=== PATIENT | male | born 1940 ===

== ENCOUNTER 2017-11-24 14:45 | Inpatient (IN) | payer MEDICARE ==
[2017-11-24] MEDS ORDERED: Iodixanol 320 MG/ML 100 ML BOTTLE IV ONE (14:54)
[2017-11-24] MEDS ORDERED: Sodium Chloride 0.9% 100 ML ONE (14:54)
[2017-11-24] MEDS ORDERED: Sodium Chloride 0.9% 1,000 ML IV SCH (15:00)
--- NOTE | 2017-11-24 15:07 | CT ---
PROCEDURE: CT HEAD WITHOUT CONTRAST. HISTORY: code stroke COMPARISON: None available. TECHNIQUE: Axial computed tomography images were obtained through the head/brain without intravenous contrast. Radiation dose: Total exam DLP = 1198 mGy-cm. This CT exam was performed using one or more of the following dose reduction techniques: Automated exposure control, adjustment of the mA and/or kV according to patient size, and/or use of iterative reconstruction technique. FINDINGS: HEMORRHAGE: No intracranial hemorrhage. BRAIN: No mass effect or edema. There is extensive bilateral diffuse cerebral atrophy and multiple bilateral deep white matter microvascular ischemic changes. These findings are also seen in the basal ganglionic regions bilaterally an in each deep temporal lobe. Right thalamic lacune also suggested. These findings may be chronic. However acute on chronic pathology is not excluded. No significant associated edema VENTRICLES: Unremarkable. No hydrocephalus. CALVARIUM: Unremarkable. PARANASAL SINUSES: Unremarkable as visualized. No significant inflammatory changes. MASTOID AIR CELLS: Unremarkable as visualized. No inflammatory changes. OTHER FINDINGS: None. IMPRESSION: No intracranial hemorrhage. No mass effect or edema. There is extensive bilateral diffuse cerebral atrophy and multiple bilateral deep white matter microvascular ischemic changes. These findings are also seen in the basal ganglionic regions bilaterally an in each deep temporal lobe. Right thalamic lacune also suggested. These findings may be chronic. However acute on chronic pathology is not excluded. No significant associated edema
--- NOTE | 2017-11-24 15:46 | ED PDOC ---
HPI:STROKE - Time Time: 14:50 - Historian Historian: Partner, EMS - Chief Complaint Chief Complaint: Mental status change - Notes: Notes:: Grant Colón is a 77 year old male, with no known past medical history, who was brought to the emergency department by [facility] and PD after patient was found walking along sidewalk leaning against buildings wearing shorts and slippers in below freezing weather. EMS was called for evaluation and report that patient just kept saying he wanted to go to the cafeteria and was initially refusing to get in the ambulance. On arrival patient was extremely lethargic, unable to get any history due to patient's clinical condition PMD: None provided. NIHSS Stroke Scale - Date/Time Evaluation Performed Date Performed: 11/24/17 Time Performed: 14:50 When Was NIHSS Performed: Baseline - How Severe is the Stroke Level of Consciousness: 1=Drowsy LOC to Questions: 2=Neither correct LOC to commands: 2=Neither correct Best Gaze: 0=Normal Visual: 0=No visual loss Facial: 1=Minor asymmetry Motor Arm - Left: 0=No drift Motor Arm - Right: 0=No drift Motor Leg - Left: 0=No drift Motor Leg - Right: 0=No drift Limb Ataxia: 0=Absent Sensory: 0=Normal Best Language: 2=Severe aphasia Dysarthia: 2=Severe, near unintelligible or worse Extinction & Inattention (Neglect): 0=Normal, no object Score: 10 Severity Of Stroke: 5-15 = Moderate Stroke rTPA Inclusion/Exclusion - Refusal of Treatment Patient Refused Treatment: No - Inclusion Criteria for Altepase Patient is 18 years or Older: Yes The Clinical Diagnosis of Ischemic Stroke That is Causing a Potentially Disabling Neurological Deficit: Yes Time of Onset is Well Established to be Less Than 270 Minute Before Treatment Would Begin: No Risk/Benefit Discussed With Patient/Family Member Present: No - Exclusion Criteria for Altepase Uncontrolled Hypertension at Time of Treatment (Systolic BP above 185 or Diastolic BP above 110 mmHg): No Past Medical History Reviewed: Historical Data, Nursing Documentation, Vital Signs - Family History Family History: States: Unknown Family Hx - Home Medications Home Medications: Ambulatory Orders Medication Instructions Recorded Acetaminophen [Tylenol 325mg tab] 650 mg PO Q4 PRN tab 11/30/17 Aspirin 325 mg PO DAILY tab 11/30/17 Atorvastatin [Lipitor] 20 mg PO DAILY tab 11/30/17 Clopidogrel [Plavix] 75 mg PO DAILY tab 11/30/17 Nystatin [Nystop Topical Powder] 1 applic TOP TID bottle 11/30/17 Valsartan [Diovan] 80 mg PO DAILY #0 tab 11/30/17 - Allergies Allergies/Adverse Reactions: Allergies Allergy/AdvReac Type Severity Reaction Status Date / Time No Known Allergies Allergy Verified 11/24/17 14:50 Review of Systems Review Of Systems: ROS cannot be obtained secondary to pt's inabilty to answer questions. Physical Exam - Reviewed Nursing Documentation Reviewed: Yes Vital Signs Reviewed: Yes - Physical Exam Appears: Positive for: In Acute Distress (severe lethargy and weakness. ) Head Exam: Positive for: ATRAUMATIC, NORMAL INSPECTION, NORMOCEPHALIC Skin: Positive for: Normal Color. Negative for: Warm (Cold in extremities. ) Eye Exam: Positive for: Normal appearance ENT: Positive for: Other (Dry mucous membranes.) Neck: Positive for: Painless ROM Cardiovascular/Chest: Positive for: Regular Rate, Rhythm. Negative for: Murmur Respiratory: Positive for: Normal Breath Sounds. Negative for: Respiratory Distress Gastrointestinal/Abdominal: Positive for: Normal Exam, Soft. Negative for: Tenderness, Guarding, Rebound Extremity: Positive for: Normal ROM. Negative for: Tenderness, Deformity, Swelling Neurologic/Psych: Positive for: Alert (Reacts to pain in all extremities. ), Facial Droop (Sutile right facial droop and sutile right pronator drift. ) - Laboratory Results Result Diagrams: 11/26/17 05:00 11/28/17 06:31 - Progress Condition: Improving,but remains with symptoms - Core Measure Core Measure Indicators: Code Stroke - Critical Care Total Time (In Min): 30 Documented Critical Care: Time excludes all time spent performint seperately billable procedures Medical Decision Making Medical Decision Makin:50 Initial Impression: AMS, weakness. Differential includes but not limited to Stroke, TIA, metabolic encephalopathy, electrolyte abnormality, dehydration, hypothermia, intoxication. Pt will need hospitalization for full workup of above, pending initial workup. Initial Plan: --Type and screen --ABG Shock Panel --CTA Head/Neck Cod Stroke --EKG --Alcohol serum --Ammonia --B-Type Natriuretic Peptide --CMP --Creatine Phosphokinase --Drug screen, urine --Hemoglobin A1C --Lipid Panel --Magnesium --Phosphorus --Troponin I --Stroke team consult --Urine dipstick --CBC w/ differential --PTT --PT --Chest portable [RAD] --Sodium Chloride 1,000 ml IV 100 mls/hr --Influenza A B --Reevaluation 15:[address] FINDINGS: HEMORRHAGE: No intracranial hemorrhage. BRAIN: No mass effect or edema. There is extensive bilateral diffuse cerebral atrophy and multiple bilateral deep white matter microvascular ischemic changes. These findings are also seen in the basal ganglionic regions bilaterally an in each deep temporal lobe. Right thalamic lacune also suggested. These findings may be chronic. However acute on chronic pathology is not excluded. No significant associated edema VENTRICLES: Unremarkable. No hydrocephalus. CALVARIUM: Unremarkable. PARANASAL SINUSES: Unremarkable as visualized. No significant inflammatory changes. MASTOID AIR CELLS: Unremarkable as visualized. No inflammatory changes. OTHER FINDINGS: None. IMPRESSION: No intracranial hemorrhage. No mass effect or edema. There is extensive bilateral diffuse cerebral atrophy and multiple bilateral deep white matter microvascular ischemic changes. These findings are also seen in the basal ganglionic regions bilaterally an in each deep temporal lobe. Right thalamic lacune also suggested. These findings may be chronic. However acute on chronic pathology is not excluded. No significant associated edema 15:53 CXR FINDINGS: LUNGS: No active pulmonary disease. Shallow inspiration. PLEURA: No significant pleural effusion identified,. A minimal left pleural effusion cannot be excluded. Summation soft tissues versus left inferolateral pleural thickening can also simulate this findings are slightly more conspicuous on the current study. No pneumothorax apparent. CARDIOVASCULAR: Normal. OSSEOUS STRUCTURES: No significant abnormalities. VISUALIZED UPPER ABDOMEN: Normal. OTHER FINDINGS: None. IMPRESSION: No consolidation. Shallow lung volumes. Minimal increase opacity left inferolateral costophrenic angle -small left pleural effusion, interval left inferolateral pleural thickening versus summation of soft tissues all considerations. 16:12 Head/Neck CTA FINDINGS: Visualized aortic arch is widely patent as are the origins of the great vessels. Common carotid arteries are with no occlusion. There is a fairly significant calcified atherosclerotic plaque the left the level of the left carotid bifurcation with estimated diameter narrowing of at least 60-65 %. . The remainder of the left internal carotid artery as well as the right internal carotid including the petrous and cavernous segments despite some minimal calcific plaque along the cavernous carotid arteries. The supraclinoid carotid segments are patent. There is asymmetry of the vertebral arteries right-sided which is larger in caliber more dominant felt to represent a anatomic variation. Basilar artery is also patent. The visualized major branches of the [place] are also patent though there is asymmetry of the A1 segments right-sided which smaller in caliber than the left felt to represent an anatomic variant. The at the anterior middle and posterior cerebral arteries are patent all with relatively symmetric appearing distal branches as well. No evidence of large aneurysm nor vascular malformation. Please refer to CT scan of the brain for additional details regarding white matter and multiple bilateral basal nuclei lacunar type infarcts. Moderate central volume loss. Multilevel degenerative spondylosis of the cervical spine. RIGHT CAROTID ARTERIES: Carotid Bifurcatio are the the the the the anchor at poor for subglottic at n: Normal. IMPRESSION: Significant atherosclerotic plaque left carotid bifurcation with estimated percent diameter stenosis of at least 60-65 % 1600 Pt's mental status spontaneously improved since arrival. He reports that he has been diagnosed with htn in the past but does not take medications or sees any PMD. He lives in a hotel and otherwise has no permanent home. Required to leave during the day. Ddx includes TIA, near syncope, metabolic encephalopathy, carotid artery stenosis. Needs hospitalization for further management. [facility]. Scribe Attestation: Documented by Zafar Gallardo, acting as a scribe for Elma Cuellar MD Provider Scribe Attestation: All medical record entries made by the Scribe were at my direction and personally dictated by me. I have reviewed the chart and agree that the record accurately reflects my personal performance of the history, physical exam, medical decision making, and the department course for this patient. I have also personally directed, reviewed, and agree with the discharge instructions and disposition. Disposition - Clinical Impression Clinical Impression: Confusion and disorientation, Carotid artery disease Counseled Patient/Family Regarding: Studies Performed, Diagnosis - Disposition Disposition Time: 15:00 Condition: GUARDED - Pt Status Changed To: Hospital Disposition Of: Inpatient - Admit Certification Admit to Inpatient:: After my assessment, the patient will require hospitalization for at least two midnights. This is because of the severity of symptoms shown, intensity of services needed, and/or the medical risk in this patient being treated as an outpatient. - POA Present On Arrival: Falls Or Trauma (risk)
[2017-11-24 16:05] LABS: INR 1.3 (0.9-1.2); PARTIAL THROMBOPLASTIN TIME 29.7 Seconds (25.6-37.1); PROTHROMBIN TIME 14.6 Seconds (9.8-13.1)
[2017-11-24 16:11] LABS: ALBUMIN 3.4 g/dL (3.5-5.0); ALT/SGPT 18 U/L (21-72); AST/SGOT 30 U/L (17-59); BLOOD UREA NITROGEN 22 mg/dl (9-20); CALCIUM 9.6 mg/dL (8.4-10.2); GFR AFRICAN-AMERICAN 33; GFR NON-AFRICAN AMERICAN 28; HDL CHOLESTEROL 21 MG/DL (30-70)
--- NOTE | 2017-11-24 16:14 | CT ---
PROCEDURE: CT Angiography of the neck and brain dated 11/24/2017 HISTORY: Code stroke COMPARISON: Correlation made with prior CT scan brain obtained earlier same day TECHNIQUE: Contiguous helical/transaxial images of the neck were obtained from the level of the skull-base to the superior mediastinum in the arteriographic phase of enhancement. Coronal and sagittal reformats or also generated. IV contrast dose: 95 cc Visipaque 320 Radiation Dose - DLP: 2164.5 mGy-cm This CT exam was performed using one or more of the following dose reduction techniques: Automated exposure control, adjustment of the mA and/or kV according to patient size, and/or use of iterative reconstruction technique. FINDINGS: Visualized aortic arch is widely patent as are the origins of the great vessels. Common carotid arteries are with no occlusion. There is a fairly significant calcified atherosclerotic plaque the left the level of the left carotid bifurcation with estimated diameter narrowing of at least 60-65 %. . The remainder of the left internal carotid artery as well as the right internal carotid including the petrous and cavernous segments despite some minimal calcific plaque along the cavernous carotid arteries. The supraclinoid carotid segments are patent. There is asymmetry of the vertebral arteries right-sided which is larger in caliber more dominant felt to represent a anatomic variation. Basilar artery is also patent. The visualized major branches of the [place] are also patent though there is asymmetry of the A1 segments right-sided which smaller in caliber than the left felt to represent an anatomic variant. The at the anterior middle and posterior cerebral arteries are patent all with relatively symmetric appearing distal branches as well. No evidence of large aneurysm nor vascular malformation. Please refer to CT scan of the brain for additional details regarding white matter and multiple bilateral basal nuclei lacunar type infarcts. Moderate central volume loss. Multilevel degenerative spondylosis of the cervical spine. RIGHT CAROTID ARTERIES: Carotid Bifurcatio are the the the the the anchor at poor for subglottic at n: Normal. IMPRESSION: Significant atherosclerotic plaque left carotid bifurcation with estimated percent diameter stenosis of at least 60-65 %
[2017-11-24 16:20] LABS: B-TYPE NATRIURETIC PEPTIDE 164 pg/ml (0-900)
[2017-11-24 16:22] LABS: LDL CHOLESTEROL 176 mg/dL (0-129)
--- NOTE | 2017-11-24 16:55 | RAD ---
HISTORY: Code Stroke COMPARISON: 04/12/2008 FINDINGS: LUNGS: No active pulmonary disease. Shallow inspiration. PLEURA: No significant pleural effusion identified,. A minimal left pleural effusion cannot be excluded. Summation soft tissues versus left inferolateral pleural thickening can also simulate this findings are slightly more conspicuous on the current study. No pneumothorax apparent. CARDIOVASCULAR: Normal. OSSEOUS STRUCTURES: No significant abnormalities. VISUALIZED UPPER ABDOMEN: Normal. OTHER FINDINGS: None. IMPRESSION: No consolidation. Shallow lung volumes. Minimal increase opacity left inferolateral costophrenic angle -small left pleural effusion, interval left inferolateral pleural thickening versus summation of soft tissues all considerations.
[2017-11-24 16:56] LABS: BASO % 0.2 % (0.0-2.0); EOS % 0.2 % (0.0-4.0); HEMOGLOBIN 13.8 g/dL (12.0-18.0); LYMPH # 3.6 K/uL (1.0-4.3); LYMPH % 21.5 % (20.0-40.0); MEAN CELL VOLUME 88.4 fl (80.0-94.0); MEAN CORPUSCULAR HEMOGLOBIN 28.7 pg (27.0-31.0); MEAN CORPUSCULAR HGB CONC 32.5 g/dL (33.0-37.0); MEAN PLATELET VOLUME 7.9 fl (7.2-11.7); MONO # 0.9 K/uL (0.0-0.8); MONO % 5.2 % (0.0-10.0); NEUT # 12.2 K/uL (1.8-7.0); NEUT % 72.9 % (50.0-75.0); NRBC % 0.1 % (0.0-0.0); RBC 4.81 Mil/uL (4.40-5.90); WHITE BLOOD COUNT 16.7 K/uL (4.8-10.8)
[2017-11-24 18:53] LABS: BARBITURATES, UR NEGATIVE (NEGATIVE); BENZODIAZEPINES, UR NEGATIVE (NEGATIVE); OPIATES, UR NEGATIVE (NEGATIVE); PHENCYCLIDINE, UR NEGATIVE (NEGATIVE)
[2017-11-24] MEDS ORDERED: Dextrose 5%/0.45% NS 1,000 ML IV SCH (22:00)
[2017-11-25 07:20] LABS: HEMOGLOBIN 14.1 g/dL (12.0-18.0); MEAN CELL VOLUME 84.6 fl (80.0-94.0); MEAN CORPUSCULAR HEMOGLOBIN 29.1 pg (27.0-31.0); MEAN CORPUSCULAR HGB CONC 34.4 g/dL (33.0-37.0); RBC 4.84 Mil/uL (4.40-5.90)
[2017-11-25 07:45] LABS: CALCIUM 9.1 mg/dL (8.4-10.2)
[2017-11-25] MEDS ORDERED: Potassium Chloride 20 mEq ER Tab PO ONE (08:35)
[2017-11-25] MEDS ORDERED: Enoxaparin 30 mg Syringe SC SCH (09:00)
--- NOTE | 2017-11-25 09:55 | HP ---
HISTORY OF PRESENT ILLNESS: Mr. Colón is a 77-year-old male who was admitted via the Emergency Room after he was brought in by EMS from [place] who was found walking down along the sidewalk and was leaning against the building. He was reported as having what appeared to be a syncopal episode. He was brought to the Emergency Room where workup was remarkable for some cerebrovascular atherosclerosis and he was advised admission for workup and therapy. He has a history of hypertension on Diovan, but has not been compliance to medication. He has not seen a doctor for years. FAMILY HISTORY: Noncontributory. SOCIAL HISTORY: He denies smoking, alcohol use, but lives alone in [place] and is not in touch with his family. REVIEW OF SYSTEMS: Essentially remarkable for dizziness. PHYSICAL EXAMINATION: GENERAL: The patient is alert and oriented to person, place and time, but still complains that he feels somewhat dizzy. VITAL SIGNS: Remarkable for blood pressure of 104/69 with the pulse of 80, respiratory rate is 20. He is afebrile. O2 sat is 100% on room air. SKIN: Shows fair turgor. HEENT: Pupils are equal and reactive to light and accommodation. JVP is flat. Mouth shows fair hygiene. LUNGS: Clear. HEART: Regular. No murmurs or gallop. ABDOMEN: Soft and nontender. No organomegaly. EXTREMITIES: Shows no edema or cyanosis, but appear unkempt. LABORATORY DATA: Sodium 139, potassium 3.5, BUN 22, and creatinine 2.3. Troponin 0.028. Triglycerides 175 and cholesterol 217. WBC 16.7, hemoglobin 13.8, and platelet count . CT scan of the head is remarkable for no mass effect or edema, extensive bilateral diffuse cerebral atrophy, multiple bilateral deep white matter microvascular ischemic changes, these findings are also seen in the basal ganglia region bilaterally and in each deep temporal lobe, right thalamic lacune also suggested, these findings may be chronic; however, [id number] pathology is not excluded. Head CT and neck CTA remarkable for significant atherosclerotic plaque left carotid bifurcation with stenosis of at least 60% to 65%. Chest x-ray, minimal increased opacity in left inferior and lateral costophrenic angles, small left pleural effusion, some pleural thickening. EKG official report pending, but unofficially is normal sinus rhythm with right bundle-branch block. IMPRESSION: Syncopal episode with severe atherosclerotic disease of the vertebrobasilar system and carotids. Abnormal electrocardiogram one has to rule out central nervous system pathology, one also has to rule out cardiac arrhythmias. The patient has a history of hypertension, but has not been compliance to medication. PLAN: The plan would be Neurology evaluation, Cardiology evaluation. Medications already ordered. Neuro and cardiac workup in progress. Americo Noble MD
--- NOTE | 2017-11-25 11:33 | CARD ---
APPROVED REPORT EKG Measurement Heart [id number] CA [id number] [id number] <Conclusion> Normal sinus rhythm Right bundle branch block Abnormal ECG
--- NOTE | 2017-11-25 14:00 | CARD ---
APPROVED REPORT EXAM: Two-dimensional and M-mode echocardiogram with Doppler and color Doppler. Other Information Quality : AverageRhythm : NSR INDICATION CVA/TIA 2D DIMENSIONS IVSd1.07 (0.7-1.1cm)LVDd3.74 (3.9-5.9cm) LVOT Diameter2.22 (1.8-2.4cm)PWd0.75 (0.7-1.1cm) IVSs1.34 (0.8-1.2cm)LVDs1.61 (2.5-4.0cm) FS (%) 56.8 %PWs1.20 (0.8-1.2cm) M-Mode DIMENSIONS Left Atrium (MM)4.35 (2.5-4.0cm)IVSd1.09 (0.7-1.1cm) Aortic Root3.38 (2.2-3.7cm)LVDd5.21 (4.0-5.6cm) Aortic Cusp Exc.1.29 (1.5-2.0cm)PWd0.74 (0.7-1.1cm) IVSs1.76 cmFS (%) 62 % LVDs2.00 (2.0-3.8cm)PWs1.38 cm Mitral Valve MV E Bojxypts23.6cm/sMV DECEL [id number] A Fkinverd84.7cm/s MV [id number]/A ratio0.5MVA (PHT)1.92cm2 TDI Lateral E' Peak V6.93cm/sMedial E' Peak V7.09cm/sE/Lateral E'7.6 E/Medial E'7.4 Pulmonary Valve PV Peak Msyugtcb447.7cm/s Tricuspid Valve TR Peak Jixlumik134jj/sRAP [id number] Peak Gr.15mmHg [id number] LEFT VENTRICLE The left ventricle is normal size. There is normal left ventricular wall thickness. The left ventricular function is normal. The left ventricular ejection fraction is within the normal range. The Ejection Fraction is >70%. There is normal LV segmental wall motion. Transmitral Doppler flow pattern is Grade I-abnormal relaxation pattern. RIGHT VENTRICLE The right ventricle is normal size. The right ventricular systolic function is normal. ATRIA The left atrium size is normal. The right atrium size is normal. AORTIC VALVE The aortic valve is normal in structure. No aortic regurgitation is present. There is no aortic valvular stenosis. MITRAL VALVE The mitral valve is normal in structure. There is no mitral valve stenosis. There is no mitral valve regurgitation noted. TRICUSPID VALVE The tricuspid valve is normal in structure. There is no tricuspid valve regurgitation noted. There is no tricuspid valve stenosis. PULMONIC VALVE The pulmonary valve is normal in structure. There is no pulmonic valvular regurgitation. GREAT VESSELS The aortic root is normal in size. The IVC is normal in size and collapses >50% with inspiration. PERICARDIAL EFFUSION The pericardium appears normal. <Conclusion> The left ventricle is normal size. The left ventricular function is normal. The left ventricular ejection fraction is within the normal range. The Ejection Fraction is >70%.
[2017-11-25] MEDS ORDERED: Sodium Chloride 0.9% 1,000 ML IV SCH (14:15)
--- NOTE | 2017-11-25 14:50 | CARD ---
APPROVED REPORT EKG Measurement Heart [id number] ND 130P33 [id number] <Conclusion> Normal sinus rhythm Right bundle branch block Left anterior fascicular block
--- NOTE | 2017-11-25 14:59 | CP.PCM.CON ---
History of Present Illness - History of Present Illness History of Present Illness: Cardiology 77 y/o male admitted with change of mental status. Pt was found wandering in the street. Confused on admission now oriented denies chest pain/sob/syncope Pt has no PMH EKG: RBBB Echo; good LV function EF: 70% Troponin: neg Past Patient History - Past Medical History & Family History Past Medical History?: Yes - Past Social History Smoking Status: Never Smoked - CARDIAC Hx Cardiac Disorders: Yes Hx Hypercholesterolemia: Yes Hx Hypertension: Yes - PULMONARY Hx Asthma: Yes - NEUROLOGICAL Hx Neurological Disorder: No - HEENT Hx HEENT Problems: No - RENAL Hx Chronic Kidney Disease: No - ENDOCRINE/METABOLIC Hx Endocrine Disorders: No - HEMATOLOGICAL/ONCOLOGICAL Hx AIDS: No Hx Blood Transfusions: No Hx Human Immunodeficiency Virus (HIV): No - INTEGUMENTARY Hx Dermatological Problems: No - MUSCULOSKELETAL/RHEUMATOLOGICAL Hx Musculoskeletal Disorders: No Hx Falls: No - GASTROINTESTINAL Hx Gastrointestinal Disorders: No - GENITOURINARY/GYNECOLOGICAL Hx Genitourinary Disorders: No - PSYCHIATRIC Hx Substance Use: No - SURGICAL HISTORY Hx Surgeries: No - ANESTHESIA Hx Anesthesia: No Hx Anesthesia Reactions: No Meds Allergies/Adverse Reactions: Allergies Allergy/AdvReac Type Severity Reaction Status Date / Time No Known Allergies Allergy Verified 11/24/17 14:50 - Medications Medications: Current Medications Acetaminophen (Tylenol 325mg Tab) 650 mg PO Q4 PRN PRN Reason: Pain, Mild (1-3) Aspirin (Aspirin) 325 mg PO DAILY [facility] Last Admin: 11/25/17 08:52 Dose: 325 mg Atorvastatin Calcium (Lipitor) 20 mg PO DAILY [facility] Clopidogrel Bisulfate (Plavix) 75 mg PO DAILY [facility] Last Admin: 11/25/17 08:53 Dose: 75 mg Enoxaparin Sodium (Lovenox) 30 mg SC DAILY [facility] PRN Reason: Protocol Sodium Chloride (Sodium Chloride 0.9%) 1,000 mls @ 999 mls/hr IV .Q1H1M [facility] Stop: 11/26/17 14:14 Nystatin (Nystop Topical Powder) 1 applic TOP TID [facility] Valsartan (Diovan) 80 mg PO DAILY [facility] Last Admin: 11/25/17 08:52 Dose: 80 mg Physical Exam - Respiratory Exam Respiratory Exam: NORMAL BREATHING PATTERN - Cardiovascular Exam Cardiovascular Exam: REGULAR RHYTHM Results - Vital Signs Recent Vital Signs: Last Vital Signs Temp 98.1 F 11/25/17 12:27 Pulse 88 11/25/17 12:27 Resp 20 11/25/17 12:27 BP 96/58 L 11/25/17 12:27 Pulse Ox 96 11/25/17 12:27 - Labs Result Diagrams: 11/26/17 05:00 11/26/17 05:00 Labs: Laboratory Results - last 24 hr 11/24/17 11/24/17 11/24/17 15:40 15:40 15:42 WBC RBC Hgb Hct MCV MCH MCHC RDW Plt Count MPV Neut % (Auto) Lymph % (Auto) [place] % (Auto) Eos % (Auto) Baso % (Auto) Neut # (Auto) Lymph # (Auto) [place] # (Auto) Eos # (Auto) Baso # (Auto) PT INR APTT Sodium 139 Potassium 3.5 L Chloride 95 L Carbon Dioxide 15 L Anion Gap 33 H BUN 22 H Creatinine 2.3 H Est GFR ( Amer) 33 Est GFR (Non-Af Amer) 28 Random Glucose 197 H Hemoglobin A1c Calcium 9.6 Phosphorus 6.3 H Magnesium 2.0 Total Bilirubin 0.8 AST 30 ALT 18 L Alkaline Phosphatase 102 Ammonia 21 Total Creatine Kinase 44 L Troponin I 0.0280 NT-Pro-B Natriuret Pep 164 Total Protein 6.7 Albumin 3.4 L Globulin 3.3 Albumin/Globulin Ratio 1.0 Triglycerides 175 H Cholesterol 217 H LDL Cholesterol Direct 176 H HDL Cholesterol 21 L Urine Opiates Screen Urine Methadone Screen Ur Barbiturates Screen Ur Phencyclidine Scrn Ur Amphetamines Screen U Benzodiazepines Scrn U Oth Cocaine Metabols U Cannabinoids Screen Alcohol, Quantitative < 10 Influenza Typ A,B (EIA) Negative for flu a/b Blood Type Antibody Screen BBK History Checked 11/24/17 11/24/17 11/24/17 15:42 15:42 15:42 WBC RBC Hgb Hct MCV MCH MCHC RDW Plt Count MPV Neut % (Auto) Lymph % (Auto) [place] % (Auto) Eos % (Auto) Baso % (Auto) Neut # (Auto) Lymph # (Auto) [place] # (Auto) Eos # (Auto) Baso # (Auto) PT 14.6 H INR 1.3 H APTT 29.7 Sodium Potassium Chloride Carbon Dioxide Anion Gap BUN Creatinine Est GFR ( Amer) Est GFR (Non-Af Amer) Random Glucose Hemoglobin A1c 5.7 Calcium Phosphorus Magnesium Total Bilirubin AST ALT Alkaline Phosphatase Ammonia Total Creatine Kinase Troponin I NT-Pro-B Natriuret Pep Total Protein Albumin Globulin Albumin/Globulin Ratio Triglycerides Cholesterol LDL Cholesterol Direct HDL Cholesterol Urine Opiates Screen Urine Methadone Screen Ur Barbiturates Screen Ur Phencyclidine Scrn Ur Amphetamines Screen U Benzodiazepines Scrn U Oth Cocaine Metabols U Cannabinoids Screen Alcohol, Quantitative Influenza Typ A,B (EIA) Blood Type O POSITIVE Antibody Screen Negative BBK History Checked No verified bt 11/24/17 11/24/17 11/25/17 16:55 18:19 06:00 WBC 16.7 H 14.0 H RBC 4.81 4.84 Hgb 13.8 14.1 Hct 42.5 41.0 MCV 88.4 84.6 D MCH 28.7 29.1 MCHC 32.5 L 34.4 RDW 15.0 H 15.0 H Plt Count 337 320 MPV 7.9 Neut % (Auto) 72.9 Lymph % (Auto) 21.5 [place] % (Auto) 5.2 Eos % (Auto) 0.2 Baso % (Auto) 0.2 Neut # (Auto) 12.2 H Lymph # (Auto) 3.6 [place] # (Auto) 0.9 H Eos # (Auto) 0.0 Baso # (Auto) 0.0 PT INR APTT Sodium Potassium Chloride Carbon Dioxide Anion Gap BUN Creatinine Est GFR ( Amer) Est GFR (Non-Af Amer) Random Glucose Hemoglobin A1c Calcium Phosphorus Magnesium Total Bilirubin AST ALT Alkaline Phosphatase Ammonia Total Creatine Kinase Troponin I NT-Pro-B Natriuret Pep Total Protein Albumin Globulin Albumin/Globulin Ratio Triglycerides Cholesterol LDL Cholesterol Direct HDL Cholesterol Urine Opiates Screen Negative Urine Methadone Screen Negative Ur Barbiturates Screen Negative Ur Phencyclidine Scrn Negative Ur Amphetamines Screen Negative U Benzodiazepines Scrn Negative U Oth Cocaine Metabols Negative U Cannabinoids Screen Negative Alcohol, Quantitative Influenza Typ A,B (EIA) Blood Type Antibody Screen BBK History Checked 11/25/17 06:00 WBC RBC Hgb Hct MCV MCH MCHC RDW Plt Count MPV Neut % (Auto) Lymph % (Auto) [place] % (Auto) Eos % (Auto) Baso % (Auto) Neut # (Auto) Lymph # (Auto) [place] # (Auto) Eos # (Auto) Baso # (Auto) PT INR APTT Sodium 141 Potassium 3.2 L Chloride 96 L Carbon Dioxide 28 Anion Gap 20 BUN 29 H Creatinine 1.6 H Est GFR ( Amer) 51 Est GFR (Non-Af Amer) 42 Random Glucose 126 H Hemoglobin A1c Calcium 9.1 Phosphorus Magnesium Total Bilirubin AST ALT Alkaline Phosphatase Ammonia Total Creatine Kinase Troponin I NT-Pro-B Natriuret Pep Total Protein Albumin Globulin Albumin/Globulin Ratio Triglycerides Cholesterol LDL Cholesterol Direct HDL Cholesterol Urine Opiates Screen Urine Methadone Screen Ur Barbiturates Screen Ur Phencyclidine Scrn Ur Amphetamines Screen U Benzodiazepines Scrn U Oth Cocaine Metabols U Cannabinoids Screen Alcohol, Quantitative Influenza Typ A,B (EIA) Blood Type Antibody Screen BBK History Checked Assessment & Plan (1) Confusion and disorientation Assessment and Plan: Cardiac garcia the pt is stable Status: Acute (2) Dementia Status: Acute (3) Change in mental status Status: Acute
[2017-11-25 17:47] LABS: SQUAMOUS EPITHIAL 1 /hpf (0-5); URINE BILIRUBIN NEGATIVE (NEGATIVE); URINE BLOOD LARGE (NEGATIVE); URINE CLARITY CLOUDY (Clear); URINE COLOR YELLOW (YELLOW); URINE GLUCOSE (UA) NEG (Normal); URINE LEUKOCYTE ESTERASE TRACE Leu/uL (Negative); URINE PROTEIN 30 mg/dL (NEGATIVE); URINE UROBILINOGEN 0.2-1.0 mg/dL (0.2-1.0)
[2017-11-26] MEDS: Tmp-Smz 800 mg-160 mg DS Tab PO SCH ×3 (00:05→21:34)
[2017-11-26 06:41] LABS: HEMOGLOBIN 12.4 g/dL (12.0-18.0); MEAN CELL VOLUME 86.8 fl (80.0-94.0); MEAN CORPUSCULAR HEMOGLOBIN 28.6 pg (27.0-31.0); RBC 4.32 Mil/uL (4.40-5.90); RED CELL DISTRIBUTION WIDTH 15.2 % (11.5-14.5); WHITE BLOOD COUNT 11.9 K/uL (4.8-10.8)
[2017-11-26 06:56] LABS: BLOOD UREA NITROGEN 17 mg/dl (9-20); CALCIUM 8.6 mg/dL (8.4-10.2); GFR AFRICAN-AMERICAN > 60; GFR NON-AFRICAN AMERICAN > 60
[2017-11-26] MEDS: Potassium Chloride 20 mEq ER Tab PO SCH ×2 (09:00→17:30)
--- NOTE | 2017-11-26 10:04 | CP.PCM.CON ---
History of Present Illness - History of Present Illness History of Present Illness: Mr. Colón is a 77 year old male, with no known past medical history, who was brought to the emergency department by [facility] and PD after patient was found walking along sidewalk leaning against buildings wearing shorts and slippers in below freezing weather. EMS was called for evaluation and report that patient just kept saying he wanted to go to the cafeteria and was initially refusing to get in the ambulance. On arrival patient was extremely lethargic, unable to get any history due to patient's clinical condition. CT scan of the head showed no mass effect or edema. There is extensive bilateral diffuse cerebral atrophy and multiple bilateral deep white matter microvascular ischemic changes. CTA of the head and neck 11/24/17 showed significant atherosclerotic plague in the left carotid bifurcation with estimated percent diameter stenosis 60-65%. At present, he is alert, oriented in all spheres. He denies any headache, dizziness, blurred vision, nausea, or vomiting. He further claims of not using glasses which makes his vision clearer. Review of Systems - Review of Systems All systems: reviewed and no additional remarkable complaints except Past Patient History - Past Medical History & Family History Past Medical History?: Yes - Past Social History Smoking Status: Never Smoked - CARDIAC Hx Cardiac Disorders: Yes Hx Hypercholesterolemia: Yes Hx Hypertension: Yes - PULMONARY Hx Asthma: Yes - NEUROLOGICAL Hx Neurological Disorder: No - HEENT Hx HEENT Problems: No - RENAL Hx Chronic Kidney Disease: No - ENDOCRINE/METABOLIC Hx Endocrine Disorders: No - HEMATOLOGICAL/ONCOLOGICAL Hx AIDS: No Hx Blood Transfusions: No Hx Human Immunodeficiency Virus (HIV): No - INTEGUMENTARY Hx Dermatological Problems: No - MUSCULOSKELETAL/RHEUMATOLOGICAL Hx Musculoskeletal Disorders: No Hx Falls: No - GASTROINTESTINAL Hx Gastrointestinal Disorders: No - GENITOURINARY/GYNECOLOGICAL Hx Genitourinary Disorders: No - PSYCHIATRIC Hx Substance Use: No - SURGICAL HISTORY Hx Surgeries: No - ANESTHESIA Hx Anesthesia: No Hx Anesthesia Reactions: No Meds Allergies/Adverse Reactions: Allergies Allergy/AdvReac Type Severity Reaction Status Date / Time No Known Allergies Allergy Verified 11/24/17 14:50 - Medications Medications: Current Medications Acetaminophen (Tylenol 325mg Tab) 650 mg PO Q4 PRN PRN Reason: Pain, Mild (1-3) Aspirin (Aspirin) 325 mg PO DAILY [facility] Last Admin: 11/26/17 09:10 Dose: 325 mg Atorvastatin Calcium (Lipitor) 20 mg PO DAILY [facility] Last Admin: 11/26/17 09:11 Dose: 20 mg Clopidogrel Bisulfate (Plavix) 75 mg PO DAILY [facility] Last Admin: 11/26/17 09:11 Dose: 75 mg Sodium Chloride (Sodium Chloride 0.9%) 1,000 mls @ 999 mls/hr IV .Q1H1M [facility] Stop: 11/26/17 14:14 Last Admin: 11/25/17 15:43 Dose: 999 mls/hr Nystatin (Nystop Topical Powder) 1 applic TOP TID [facility] Last Admin: 11/26/17 09:11 Dose: 1 applic Potassium Chloride (K-Dur 20 Meq Er Tab) 20 meq PO BID [facility] Stop: 11/26/17 17:01 Trimethoprim/Sulfamethoxazole (Bactrim Ds Tab) 1 tab PO Q12 [facility] PRN Reason: Protocol Last Admin: 11/26/17 09:11 Dose: 1 tab Valsartan (Diovan) 80 mg PO DAILY [facility] Last Admin: 11/25/17 08:52 Dose: 80 mg Physical Exam - Constitutional Appears: No Acute Distress - Head Exam Head Exam: NORMAL INSPECTION - Respiratory Exam Respiratory Exam: Clear to Auscultation Bilateral, NORMAL BREATHING PATTERN - Cardiovascular Exam Cardiovascular Exam: +S1, +S2 - GI/Abdominal Exam GI & Abdominal Exam: Normal Bowel Sounds, Soft. absent: Tenderness - Extremities Exam Extremities exam: Positive for: normal inspection - Neurological Exam Neurological exam: Alert, CN II-XII Intact, Oriented x3 - Expanded Neurological Exam Expanded Patient oriented to: person, place, time Cranial nerves: EOM's Intact: Normal, Facial Palsey w/Forehead Movement: Normal , Facial Palsey w/o Forehead Movement: Normal, Facial Sensation: Normal, Tongue Deviation: Normal Cerebellar Function: Finger to Nose: Normal Upper motor neuron: Babinski Sign: Normal, Pronator Drift: Normal, Sensory Extinction: Normal Sensory exam: Lower Extremity 2 Point Discrimination: Normal, Lower Extremity Light Touch: Normal, Lower Extremity Pin Prick: Normal, Lower Extremity Temperature: Normal, Upper Extremity 2 Point Discrimination: Normal, Upper Extremity Light Touch: Normal, Upper Extremity Pin Prick: Normal, Upper Extremity Temperature: Normal Neuro motor strength exam: Left Upper Extremity: 5, Right Upper Extremity: 5, Left Lower Extremity: 5, Right Lower Extremity: 5 - Psychiatric Exam Psychiatric exam: Normal Affect, Normal Mood Results - Vital Signs Recent Vital Signs: Last Vital Signs Temp 98.1 F 11/26/17 08:00 Pulse 69 11/26/17 08:00 Resp 20 11/26/17 08:00 BP 96/59 L 11/26/17 08:00 Pulse Ox 98 11/26/17 08:00 - Labs Result Diagrams: 11/26/17 05:00 11/26/17 05:00 Labs: Laboratory Results - last 24 hr 11/25/17 11/26/17 11/26/17 17:00 05:00 05:00 WBC 11.9 H RBC 4.32 L Hgb 12.4 Hct 37.5 MCV 86.8 D MCH 28.6 MCHC 33.0 RDW 15.2 H Plt Count 264 Sodium 138 Potassium 3.0 L Chloride 102 Carbon Dioxide 26 Anion Gap 13 BUN 17 Creatinine 1.1 Est GFR ( Amer) > 60 Est GFR (Non-Af Amer) > 60 Random Glucose 105 Calcium 8.6 Urine Color Yellow Urine Clarity Cloudy Urine pH 5.0 Ur Specific [place] 1.030 Urine Protein 30 Urine Glucose (UA) Neg Urine Ketones Negative Urine Blood Large Urine Nitrate Negative Urine Bilirubin Negative Urine Urobilinogen 0.2-1.0 Ur Leukocyte Esterase Trace Urine RBC (Auto) 1462 H Urine Microscopic WBC 12 H Ur Squamous Epith Cells 1 Assessment & Plan (1) Carotid artery disease Assessment and Plan: Case discussed with Dr. Spaulding, recommends the following 1. Telemetry monitoring 2. MRI of the brain without contrast, MRA of the head and neck- pending 3. Echocardiogram- normal LV function and EF > 70% 4. Aspirin 81 mg PO daily and plavix 75 mg PO daily 5. Statin to keep LDL <70. 6. PT, OT, eval and treat. 7. DVT prophylaxis 8. Case management consult. Thank you Status: Acute
--- NOTE | 2017-11-26 12:35 | MRI ---
PROCEDURE: Magnetic Resonance Angiography Brain HISTORY: ams, atherosclerotic disease COMPARISON: CTA Head and Neck 11/24/2017. TECHNIQUE: 3D time of flight MR angiography of the intracranial arteries was performed. Rotating maximum intensity projection images were generated. FINDINGS: INTERNAL CAROTID ARTERIES: Unremarkable. The skull base, petrous, cavernous and supraclinoid segments are bilaterally patent. ANTERIOR CEREBRAL ARTERIES: Unremarkable. A1 and A2 segments are widely patent. Smaller distal branches unremarkable, as visualized. MIDDLE CEREBRAL ARTERIES: Unremarkable. M1 and M2 segments are widely patent. Perisylvian branches grossly symmetric. POSTERIOR CIRCULATION: Basilar Artery: Unremarkable. Distal Vertebral Arteries: Hypoplastic distal left vertebral artery is identified with the distal right vertebral artery unremarkable. . Posterior Cerebral Arteries: Unremarkable. Posterior Inferior Cerebellar Arteries: Unremarkable. ANEURYSM/ VASCULAR MALFORMATIONS: None. OTHER FINDINGS: None. IMPRESSION: Unremarkable MR angiography of the brain. Findings are concordant with CTA of the brain 11/24/2017.
--- NOTE | 2017-11-26 13:29 | MRI ---
PROCEDURE: MRI BRAIN WITHOUT CONTRAST HISTORY: atherosclerotic disease, ams COMPARISON: None. TECHNIQUE: Multiplanar, multisequence MR images of the brain were obtained without intravenous contrast enhancement. FINDINGS: HEMORRHAGE: None DWI: No evidence of an acute or early subacute infarction. BRAIN PARENCHYMA: Good corticomedullary differentiation is seen. Diffuse cerebral atrophy chronic microangiopathy are reiterated the current examination. Further, chronic lacune in the right thalamus is reiterated as well as prominent dilated perivascular space in the bilateral basal ganglia with underlying additional potential chronic lacunes not excluded here bilaterally. A chronic lacune at the left upon cyst noted superiorly and possibly also the left thalamus. A small right parietal scalp lipoma is appreciated measuring 2.1 x 1.2 cm. No suspicious extra-axial fluid collection is identified and the midline brain anatomy appears grossly nonfocal as imaged. There is no mass effect throughout. VENTRICLES: Unremarkable. No hydrocephalus. CRANIUM: Unremarkable. ORBITS: Grossly unremarkable. PARANASAL SINUSES/MASTOIDS: Clear VASCULAR SYSTEM: Skull base flow voids intact. OTHER FINDINGS: None. IMPRESSION: No definite acute intracranial findings by standard MR criteria. Age related neuro degenerative changes are reiterated as compared to prior head CTs 11/24/2017 as well as multiple chronic lacunes as discussed above. A small right parietal scalp lipoma is identified.
--- NOTE | 2017-11-26 13:39 | MRI ---
PROCEDURE: MR Angiography of the neck without contrast HISTORY: ams, atherosclerotic disease COMPARISON: CTA neck 11/24/2017. TECHNIQUE: 3D [id number] angiography of the neck was performed. Rotating maximum intensity projection images of the cervical carotid and vertebral arteries were generated. The origins of the common carotid arteries were not visualized, which is a limitation inherent to the non-contrast time of flight technique. FINDINGS: This examination is compromised by excessive motion artifact at the mid to upper neck levels. As result, the examination is sub diagnostic. Prior CT of the neck yielded more accurate results. RIGHT CAROTID ARTERIES: Common Carotid Artery: No definitive stenosis identified. Carotid Bifurcation: From the bifurcation to the mid cervical ICA level, the interpretation is compromised by motion artifacts. While the distal CCA and proximal to mid cervical ICA likely patent, possibility of stenosis is compromised by motion. Internal Carotid Artery:Widely patent distal right ICA. External Carotid Artery (proximal branches): Obscured by motion artifact. LEFT CAROTID ARTERIES: Common Carotid Artery: No definitive stenosis identified. Carotid Bifurcation: From the bifurcation to the mid cervical ICA level, the interpretation is compromised by motion artifacts. While the distal CCA and proximal to mid cervical ICA likely patent, possibility of stenosis is compromised by motion. Internal Carotid Artery:Widely patent distal right ICA. External Carotid Artery (proximal branches): Obscured by motion artifact. VERTEBRAL ARTERIES: Right Vertebral Artery: Source images suggest patent, dominant right vertebral artery. Significant stenosis is not excluded at the mid cervical level due to motion artifact. Left Vertebral Artery: Source images suggest patent, slightly smaller left vertebral artery when compared to the right within mid cervical level limited in evaluation due to motion artifact. OTHER FINDINGS: None. IMPRESSION: Limited examination due to motion artifacts. The bilateral distal CCA's and proximal ICA's are obscured by motion artifact as well as the mid bilateral vertebral arteries. There likely patent and without occlusion. Right dominant vertebral artery anatomy is identified grossly. CT angiography the results are superior to the current exam due to motion artifacts on MRI. Carotid ultrasonography may be considered for correlation with prior CT angiography of the neck revealed potential moderate left carotid bulb stenosis.
--- NOTE | 2017-11-26 14:14 | CP.PCM.PN ---
Subjective - Date & Time of Evaluation Date of Evaluation: 11/26/17 Time of Evaluation: 14:14 - Subjective Subjective: CLINICALLY IMPROVED HAS NO RESIDENCE TO RETURN TO Objective - Vital Signs/Intake and Output Vital Signs (last 24 hours): Temp Pulse Resp BP Pulse Ox 98.1 F 69 20 96/59 L 98 11/26/17 08:00 11/26/17 08:00 11/26/17 08:00 11/26/17 08:00 11/26/17 08:00 - Medications Medications: Current Medications Acetaminophen (Tylenol 325mg Tab) 650 mg PO Q4 PRN PRN Reason: Pain, Mild (1-3) Aspirin (Aspirin) 325 mg PO DAILY [facility] Last Admin: 11/26/17 09:10 Dose: 325 mg Atorvastatin Calcium (Lipitor) 20 mg PO DAILY [facility] Last Admin: 11/26/17 09:11 Dose: 20 mg Clopidogrel Bisulfate (Plavix) 75 mg PO DAILY [facility] Last Admin: 11/26/17 09:11 Dose: 75 mg Sodium Chloride (Sodium Chloride 0.9%) 1,000 mls @ 999 mls/hr IV .Q1H1M [facility] Stop: 11/26/17 14:14 Last Admin: 11/25/17 15:43 Dose: 999 mls/hr Nystatin (Nystop Topical Powder) 1 applic TOP TID [facility] Last Admin: 11/26/17 09:11 Dose: 1 applic Potassium Chloride (K-Dur 20 Meq Er Tab) 20 meq PO BID [facility] Stop: 11/26/17 17:01 Trimethoprim/Sulfamethoxazole (Bactrim Ds Tab) 1 tab PO Q12 [facility] PRN Reason: Protocol Last Admin: 11/26/17 09:11 Dose: 1 tab Valsartan (Diovan) 80 mg PO DAILY [facility] Last Admin: 11/25/17 08:52 Dose: 80 mg - Labs Labs: 11/26/17 05:00 11/26/17 05:00 PT 14.6 Seconds (9.8-13.1) H 11/24/17 15:42 INR 1.3 (0.9-1.2) H 11/24/17 15:42 APTT 29.7 Seconds (25.6-37.1) 11/24/17 15:42 - Constitutional Appears: Chronically Ill - Head Exam Head Exam: ATRAUMATIC, NORMAL INSPECTION, NORMOCEPHALIC - Eye Exam Eye Exam: EOMI, Normal appearance, PERRL Pupil Exam: NORMAL ACCOMODATION, PERRL - ENT Exam ENT Exam: Mucous Membranes Moist, Normal Exam - Neck Exam Neck Exam: Full ROM, Normal Inspection. absent: Lymphadenopathy - Respiratory Exam Respiratory Exam: Clear to Ausculation Bilateral, NORMAL BREATHING PATTERN - Cardiovascular Exam Cardiovascular Exam: REGULAR RHYTHM, +S1, +S2. absent: Murmur - GI/Abdominal Exam GI & Abdominal Exam: Soft, Normal Bowel Sounds. absent: Tenderness - Rectal Exam Rectal Exam: NORMAL INSPECTION - Extremities Exam Extremities Exam: Full ROM, Normal Capillary Refill, Normal Inspection. absent : Joint Swelling, Pedal Edema - Back Exam Back Exam: NORMAL INSPECTION - Neurological Exam Neurological Exam: Alert, Awake, CN II-XII Intact, Normal Gait, Oriented x3 - Psychiatric Exam Psychiatric exam: Normal Affect, Normal Mood - Skin Skin Exam: Dry, Intact, Normal Color, Warm Assessment and Plan - Assessment and Plan (Free Text) Assessment: CAROTID AND VERTEBROBASILAR DZ SYNCOPE Plan: [employer]
[2017-11-27] MEDS: Tmp-Smz 800 mg-160 mg DS Tab PO SCH ×2 (10:00→21:37)
--- NOTE | 2017-11-27 10:02 | CP.PCM.PN ---
Subjective - Date & Time of Evaluation Date of Evaluation: 11/27/17 Time of Evaluation: 10:03 - Subjective Subjective: DIZZINESS LESS CLAIMS THAT HE HAS NO HOME Objective - Vital Signs/Intake and Output Vital Signs (last 24 hours): Temp Pulse Resp BP Pulse Ox 96.0 F L 63 20 111/71 97 11/27/17 08:21 11/27/17 08:21 11/27/17 08:21 11/27/17 08:21 11/27/17 08:21 - Medications Medications: Current Medications Acetaminophen (Tylenol 325mg Tab) 650 mg PO Q4 PRN PRN Reason: Pain, Mild (1-3) Aspirin (Aspirin) 325 mg PO DAILY [facility] Last Admin: 11/27/17 09:59 Dose: 325 mg Atorvastatin Calcium (Lipitor) 20 mg PO DAILY [facility] Last Admin: 11/26/17 09:11 Dose: 20 mg Clopidogrel Bisulfate (Plavix) 75 mg PO DAILY [facility] Last Admin: 11/27/17 09:59 Dose: 75 mg Nystatin (Nystop Topical Powder) 1 applic TOP TID [facility] Last Admin: 11/27/17 10:00 Dose: 1 applic Trimethoprim/Sulfamethoxazole (Bactrim Ds Tab) 1 tab PO Q12 [facility] PRN Reason: Protocol Last Admin: 11/26/17 21:34 Dose: 1 tab Valsartan (Diovan) 80 mg PO DAILY [facility] Last Admin: 11/25/17 08:52 Dose: 80 mg - Labs Labs: 11/26/17 05:00 11/26/17 05:00 PT 14.6 Seconds (9.8-13.1) H 11/24/17 15:42 INR 1.3 (0.9-1.2) H 11/24/17 15:42 APTT 29.7 Seconds (25.6-37.1) 11/24/17 15:42 - Constitutional Appears: Chronically Ill - Head Exam Head Exam: ATRAUMATIC, NORMAL INSPECTION, NORMOCEPHALIC - Eye Exam Eye Exam: EOMI, Normal appearance, PERRL Pupil Exam: NORMAL ACCOMODATION, PERRL - ENT Exam ENT Exam: Mucous Membranes Moist, Normal Exam - Neck Exam Neck Exam: Full ROM, Normal Inspection. absent: Lymphadenopathy - Respiratory Exam Respiratory Exam: Clear to Ausculation Bilateral, NORMAL BREATHING PATTERN - Cardiovascular Exam Cardiovascular Exam: REGULAR RHYTHM, +S1, +S2. absent: Murmur - GI/Abdominal Exam GI & Abdominal Exam: Soft, Normal Bowel Sounds. absent: Tenderness - Rectal Exam Rectal Exam: NORMAL INSPECTION - Extremities Exam Extremities Exam: Full ROM, Normal Capillary Refill, Normal Inspection. absent : Joint Swelling, Pedal Edema - Back Exam Back Exam: NORMAL INSPECTION - Neurological Exam Neurological Exam: Alert, Awake, CN II-XII Intact, Normal Gait, Oriented x3 - Psychiatric Exam Psychiatric exam: Normal Affect, Normal Mood - Skin Skin Exam: Dry, Intact, Normal Color, Warm Assessment and Plan - Assessment and Plan (Free Text) Assessment: SYNCOPE CAROTID ARTEROSCLEROSIS HTN HYPOKALEMIA HOMELESSNESS Plan: CONTINUE CURRENT RX TRANSFER TO [employer] FOR [employer]ACEMENT
[2017-11-27 12:42] LABS: BLOOD UREA NITROGEN 13 mg/dl (9-20); CALCIUM 8.6 mg/dL (8.4-10.2); GFR AFRICAN-AMERICAN > 60; GFR NON-AFRICAN AMERICAN 58
[2017-11-27] MEDS ORDERED: Potassium Chloride 20 mEq ER Tab PO ONE (16:44)
[2017-11-28 08:51] LABS: BLOOD UREA NITROGEN 12 mg/dl (9-20); CALCIUM 8.8 mg/dL (8.4-10.2); GFR AFRICAN-AMERICAN > 60; GFR NON-AFRICAN AMERICAN 58
[2017-11-28] MEDS: Tmp-Smz 800 mg-160 mg DS Tab PO SCH ×2 (09:15→21:18)
--- NOTE | 2017-11-28 09:38 | CP.PCM.PN ---
Subjective - Date & Time of Evaluation Date of Evaluation: 11/28/17 Time of Evaluation: 09:36 - Subjective Subjective: Mr. prater was seen and examined at the bedside. He is alert with episode of forgetfulness. He was not able to state time, but knows person and place. He denies any headache, dizziness, lightheadedness, blurred vision, diplopia, nausea, or vomiting. He is able to follow simple commands. There was no untoward events overnight. Objective - Vital Signs/Intake and Output Vital Signs (last 24 hours): Temp Pulse Resp BP Pulse Ox 98.3 F 58 L 20 119/67 98 11/28/17 08:00 11/28/17 08:00 11/28/17 08:00 11/28/17 08:00 11/28/17 08:00 - Medications Medications: Current Medications Acetaminophen (Tylenol 325mg Tab) 650 mg PO Q4 PRN PRN Reason: Pain, Mild (1-3) Aspirin (Aspirin) 325 mg PO DAILY [facility] Last Admin: 11/28/17 09:15 Dose: 325 mg Atorvastatin Calcium (Lipitor) 20 mg PO DAILY [facility] Last Admin: 11/28/17 09:16 Dose: 20 mg Clopidogrel Bisulfate (Plavix) 75 mg PO DAILY [facility] Last Admin: 11/28/17 09:15 Dose: 75 mg Nystatin (Nystop Topical Powder) 1 applic TOP TID [facility] Last Admin: 11/28/17 09:16 Dose: 1 applic Trimethoprim/Sulfamethoxazole (Bactrim Ds Tab) 1 tab PO Q12 [facility] PRN Reason: Protocol Last Admin: 11/28/17 09:15 Dose: 1 tab Valsartan (Diovan) 80 mg PO DAILY [facility] Last Admin: 11/25/17 08:52 Dose: 80 mg - Labs Labs: 11/26/17 05:00 11/28/17 06:31 PT 14.6 Seconds (9.8-13.1) H 11/24/17 15:42 INR 1.3 (0.9-1.2) H 11/24/17 15:42 APTT 29.7 Seconds (25.6-37.1) 11/24/17 15:42 - Constitutional Appears: No Acute Distress - Head Exam Head Exam: NORMAL INSPECTION - Neurological Exam Neurological Exam: Alert, Awake, Oriented x3 Neuro motor strength exam: Left Upper Extremity: 5, Right Upper Extremity: 5, Left Lower Extremity: 5, Right Lower Extremity: 5 Additional comments: Neurological unchanged from previous examination. Assessment and Plan (1) Carotid artery disease Assessment & Plan: Case discussed with Dr. Spaulding, continue all current medical, physical, and occupational therapies. Recommend carotid doppler and neurointerventionalist to evaluate left carotid bifurcation Status: Acute
--- NOTE | 2017-11-28 09:56 | CP.PCM.PN ---
Subjective - Date & Time of Evaluation Date of Evaluation: 11/28/17 Time of Evaluation: 09:56 - Subjective Subjective: no complaints or distress vss Objective - Vital Signs/Intake and Output Vital Signs (last 24 hours): Temp Pulse Resp BP Pulse Ox 98.3 F 58 L 20 119/67 98 11/28/17 08:00 11/28/17 08:00 11/28/17 08:00 11/28/17 08:00 11/28/17 08:00 - Medications Medications: Current Medications Acetaminophen (Tylenol 325mg Tab) 650 mg PO Q4 PRN PRN Reason: Pain, Mild (1-3) Aspirin (Aspirin) 325 mg PO DAILY [facility] Last Admin: 11/28/17 09:15 Dose: 325 mg Atorvastatin Calcium (Lipitor) 20 mg PO DAILY [facility] Last Admin: 11/28/17 09:16 Dose: 20 mg Clopidogrel Bisulfate (Plavix) 75 mg PO DAILY [facility] Last Admin: 11/28/17 09:15 Dose: 75 mg Nystatin (Nystop Topical Powder) 1 applic TOP TID [facility] Last Admin: 11/28/17 09:16 Dose: 1 applic Trimethoprim/Sulfamethoxazole (Bactrim Ds Tab) 1 tab PO Q12 [facility] PRN Reason: Protocol Last Admin: 11/28/17 09:15 Dose: 1 tab Valsartan (Diovan) 80 mg PO DAILY [facility] Last Admin: 11/25/17 08:52 Dose: 80 mg - Labs Labs: 11/26/17 05:00 11/28/17 06:31 PT 14.6 Seconds (9.8-13.1) H 11/24/17 15:42 INR 1.3 (0.9-1.2) H 11/24/17 15:42 APTT 29.7 Seconds (25.6-37.1) 11/24/17 15:42 - Constitutional Appears: No Acute Distress - Head Exam Head Exam: ATRAUMATIC, NORMAL INSPECTION, NORMOCEPHALIC - Eye Exam Eye Exam: EOMI, Normal appearance, PERRL Pupil Exam: NORMAL ACCOMODATION, PERRL - ENT Exam ENT Exam: Mucous Membranes Moist, Normal Exam - Neck Exam Neck Exam: Full ROM, Normal Inspection. absent: Lymphadenopathy - Respiratory Exam Respiratory Exam: Clear to Ausculation Bilateral, NORMAL BREATHING PATTERN - Cardiovascular Exam Cardiovascular Exam: REGULAR RHYTHM, +S1, +S2. absent: Murmur - GI/Abdominal Exam GI & Abdominal Exam: Soft, Normal Bowel Sounds. absent: Tenderness - Rectal Exam Rectal Exam: NORMAL INSPECTION - Extremities Exam Extremities Exam: Full ROM, Normal Capillary Refill, Normal Inspection. 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
--- NOTE | 2017-11-28 14:12 | US ---
PROCEDURE: Duplex ultrasound of the carotid and vertebral arteries. HISTORY: near syncope, r/o VBI COMPARISON: None available. TECHNIQUE: Grayscale and duplex Doppler evaluation of the cervical carotid and vertebral arteries were performed. The common carotid, carotid bifurcations and cervical ICA and proximal ECA were evaluated. The vertebral arteries were evaluated for gross patency and direction. FINDINGS: RIGHT CAROTID ARTERIES: Common Carotid Artery: Mild intimal thickening Maximal flow velocity of 77 cm/s. Carotid Bifurcation: Minor plaque Internal Carotid Artery:Minor plaque Maximal flow velocity of 72 cm/s. External Carotid Artery (proximal branches): Normal. Maximal flow velocity of 68 cm/s. ICA/CCA Ratio: Within normal limits LEFT CAROTID ARTERIES: Common Carotid Artery: Mild intimal thickening. Maximal flow velocity of 48.5 cm/s. Carotid Bifurcation: Mild plaque. Internal Carotid Artery:Mild plaque. Maximal flow velocity of 67 cm/s. External Carotid Artery (proximal branches): Normal. Maximal flow velocity of 84 cm/s. ICA/CCA Ratio: Within normal limits. VERTEBRAL ARTERIES: Right Vertebral Artery: Patent. Antegrade flow. Left Vertebral Artery: Patent. Antegrade flow. OTHER FINDINGS: None. IMPRESSION: No peak systolic velocity elevation to suggest carotid bifurcation stenosis.
--- NOTE | 2017-11-29 08:57 | CP.PCM.PN ---
Subjective - Date & Time of Evaluation Date of Evaluation: 11/29/17 Time of Evaluation: 08:58 - Subjective Subjective: AWAKE,ALERT AND ORIENTED X 3 NO APPARENT DISTRESS VSS Objective - Vital Signs/Intake and Output Vital Signs (last 24 hours): Temp Pulse Resp BP Pulse Ox 98 F 59 L 20 113/71 98 11/29/17 08:00 11/29/17 08:00 11/29/17 08:00 11/29/17 08:00 11/29/17 08:00 - Medications Medications: Current Medications Acetaminophen (Tylenol 325mg Tab) 650 mg PO Q4 PRN PRN Reason: Pain, Mild (1-3) Aspirin (Aspirin) 325 mg PO DAILY [facility] Last Admin: 11/28/17 09:15 Dose: 325 mg Atorvastatin Calcium (Lipitor) 20 mg PO DAILY [facility] Last Admin: 11/28/17 09:16 Dose: 20 mg Clopidogrel Bisulfate (Plavix) 75 mg PO DAILY [facility] Last Admin: 11/28/17 09:15 Dose: 75 mg Nystatin (Nystop Topical Powder) 1 applic TOP TID [facility] Last Admin: 11/28/17 16:24 Dose: 1 applic Valsartan (Diovan) 80 mg PO DAILY [facility] Last Admin: 11/25/17 08:52 Dose: 80 mg - Labs Labs: 11/26/17 05:00 11/28/17 06:31 PT 14.6 Seconds (9.8-13.1) H 11/24/17 15:42 INR 1.3 (0.9-1.2) H 11/24/17 15:42 APTT 29.7 Seconds (25.6-37.1) 11/24/17 15:42 - Constitutional Appears: No Acute Distress - Head Exam Head Exam: ATRAUMATIC, NORMAL INSPECTION, NORMOCEPHALIC - Eye Exam Eye Exam: EOMI, Normal appearance, PERRL Pupil Exam: NORMAL ACCOMODATION, PERRL - ENT Exam ENT Exam: Mucous Membranes Moist, Normal Exam - Neck Exam Neck Exam: Full ROM, Normal Inspection. absent: Lymphadenopathy - Respiratory Exam Respiratory Exam: Clear to Ausculation Bilateral, NORMAL BREATHING PATTERN - Cardiovascular Exam Cardiovascular Exam: REGULAR RHYTHM, +S1, +S2. absent: Murmur - GI/Abdominal Exam GI & Abdominal Exam: Soft, Normal Bowel Sounds. absent: Tenderness - Rectal Exam Rectal Exam: NORMAL INSPECTION - Extremities Exam Extremities Exam: Full ROM, Normal Capillary Refill, Normal Inspection. absent : Joint Swelling, Pedal Edema - Back Exam Back Exam: NORMAL INSPECTION - Neurological Exam Neurological Exam: Alert, Awake, CN II-XII Intact, Normal Gait, Oriented x3 - Psychiatric Exam Psychiatric exam: Normal Affect, Normal Mood - Skin Skin Exam: Dry, Intact, Normal Color, Warm Assessment and Plan - Assessment and Plan (Free Text) Assessment: SYNCOPE NO EVIDENCE OF CVA HTN CAROTID AND VERTEBROBASILAR ARTEROSCLEROSIS HOMELESSNESS Plan: CONTINUE RX ORDERED AWAIT ACCOUNT DEVELOPMENT EXECUTIVE CONSULTATION FOR PLACEMENT
--- NOTE | 2017-11-29 09:47 | CP.PCM.PN ---
Subjective - Date & Time of Evaluation Date of Evaluation: 11/29/17 Time of Evaluation: 09:45 - Subjective Subjective: Mr. Colón was seen and examined at the bedside. He is alert with episode of forgetfulness. He was not able to state time, but knows person and place. He denies any headache, dizziness, lightheadedness, blurred vision, diplopia, nausea, or vomiting. He is able to follow simple commands. He verbalize his concern of housing arrangement upon discharge. smokehouse worker is on board with this case.Carotid doppler yesterday showed no peal systolic elevation to suggest carotid bifurcation stenosis.There was no untoward events overnight. Objective - Vital Signs/Intake and Output Vital Signs (last 24 hours): Temp Pulse Resp BP Pulse Ox 98 F 59 L 20 113/71 98 11/29/17 08:00 11/29/17 08:00 11/29/17 08:00 11/29/17 08:00 11/29/17 08:00 - Medications Medications: Current Medications Acetaminophen (Tylenol 325mg Tab) 650 mg PO Q4 PRN PRN Reason: Pain, Mild (1-3) Aspirin (Aspirin) 325 mg PO DAILY [facility] Last Admin: 11/29/17 09:05 Dose: 325 mg Atorvastatin Calcium (Lipitor) 20 mg PO DAILY [facility] Last Admin: 11/29/17 09:05 Dose: 20 mg Clopidogrel Bisulfate (Plavix) 75 mg PO DAILY [facility] Last Admin: 11/29/17 09:05 Dose: 75 mg Nystatin (Nystop Topical Powder) 1 applic TOP TID [facility] Last Admin: 11/29/17 09:06 Dose: 1 applic Valsartan (Diovan) 80 mg PO DAILY [facility] Last Admin: 11/25/17 08:52 Dose: 80 mg - Labs Labs: 11/26/17 05:00 11/28/17 06:31 PT 14.6 Seconds (9.8-13.1) H 11/24/17 15:42 INR 1.3 (0.9-1.2) H 11/24/17 15:42 APTT 29.7 Seconds (25.6-37.1) 11/24/17 15:42 - Constitutional Appears: No Acute Distress - Head Exam Head Exam: NORMAL INSPECTION - Neurological Exam Neurological Exam: Alert, Awake, Oriented x3 Neuro motor strength exam: Left Upper Extremity: 5, Right Upper Extremity: 5, Left Lower Extremity: 5, Right Lower Extremity: 5 Additional comments: Neurological unchanged from previous examination. Assessment and Plan (1) Carotid artery disease Assessment & Plan: Case discussed with Dr. Spaulding, continue all current medical, physical, and occupational therapies. Pending neurointerventionalist to evaluate left carotid bifurcation. Recommend to follow up with an outpatient neurologist upon discharge. Status: Acute
--- NOTE | 2017-11-29 19:44 | CP.PCM.CON ---
History of Present Illness - History of Present Illness History of Present Illness: Patient with history of HTN brought in due to an acute confusional state. Underwent evaluation of a [facility] CT/CTA [facility] revealed evidence of chronic infarcts and possible ICA stenosis on the left. We were consulted for the same. Review of Systems - Constitutional Constitutional: absent: As Per HPI, Anorexia, Chills, Daytime Sleepiness, Excessive Sweating, Fatigue, Fever, Frequent Falls, Headache, Increased Appetite , Lethargy, Malaise, Night Sweats, Snoring, Sleep Apnea, Weight Gain, Weight Loss, Weakness, Other - EENT Eyes: absent: As Per HPI, Blind Spots, Blurred Vision, Change in Vision, Decreased Night Vision, Diplopia, Discharge, Dry Eye, Exophthalmos, Floaters, Irritation, Itchy Eyes, Loss of Peripheral Vision, Pain, Photophobia, Requires Corrective Lenses, Sees Flashes, Spots in Vision, Tunnel Vision, Other Visual Disturbances, Loss of Vision, Other Ears: absent: As Per HPI, Decreased Hearing, Ear Discharge, Ear Pain, Tinnitus, Abnormal Hearing, Disequilibrium, Dizziness, Other Nose/Mouth/Throat: absent: As Per HPI, Epistaxis, Nasal Congestion, Nasal Discharge, Nasal Obstruction, Nasal Trauma, Nose Pain, Post Nasal Drip, Sinus Pain, Sinus Pressure, Bleeding Gums, Change in Voice, Dental Pain, Dry Mouth, Dysphagia, Halitosis, Hoarsness, Lip Swelling, Mouth Lesions, Mouth Pain, Odynophagia, Sore Throat, Throat Swelling, Tongue Swelling, Facial Pain, Neck Pain, Neck Mass, Other - Cardiovascular Cardiovascular: absent: As Per HPI, Acrocyanosis, Chest Pain, Chest Pain at Rest , Chest Pain with Activity, Claudication, Diaphoresis, Dyspnea, Dyspnea on Exertion, Edema, Irregular Heart Rhythm, Pain Radiating to Arm/Neck/Jaw, Leg Edema, Leg Ulcers, Lightheadedness, Orthopnea, Palpitations, Paroxysmal Nocturnal Dyspnea, Pedal Edema, Radiating Pain, Rapid Heart Rate, Slow Heart Rate, Syncope, Other - Respiratory Respiratory: absent: As Per HPI, Cough, Dyspnea, Hemoptysis, Dyspnea on Exertion , Wheezing, Snoring, Stridor, Pain on Inspiration, Chest Congestion, Excessive Mucous Production, Change in Mucous Color, Pain with Coughing, Other - Gastrointestinal Gastrointestinal: absent: As Per HPI, Abdominal Pain, Belching, Bloating, Change in Bowel Habits, Change in Stool Character, Coffee Ground Emesis, Constipation, Cramping, Diarrhea, Dyspepsia, Dysphagia, Early Satiety, Excessive Flatus, Fecal Incontinence, Heartburn, Hematemesis, Hematochezia, Loose Stools, Melena, Nausea, Odynophagia, Temesmus, Vomiting, Other - Musculoskeletal Musculoskeletal: absent: As Per HPI, Abnormal Gait, Arthralgias, Atrophy, Back Pain, Deformity, Joint Swelling, Limited Range of Motion, Loss of Height, Muscle Cramps, Muscle Weakness, Myalgias, Neck Pain, Numbness, Radiating Pain into Limb, Stiffness, Tingling, Other - Integumentary Integumentary: absent: As Per HPI, Acne, Alopecia, Bleeding Lesions, Change in Hair, Change in Nails, Change in Pigmentation, Changing Lesions, Dry Skin, Erythema, Furuncle, Hirsutism, Lesions, New Lesions, Non-Healing Lesions, Photosensitivity, Pruritus, Rash, Skin Pain, Skin Ulcer, Sores, Striae, Swelling , Unusual Bruising, Wounds, Jaundice, Other - Endocrine Endocrine: absent: As Per HPI, Change in Body Appearance, Change in Libido, Cold Intolorance, Deepening of Voice, Excessive Sweating, Fatigue, Flushing, Heat Intolorance, Increase in Ring/Shoe/Hat Size, Palpitations, Polydipsia, Polyphagia, Polyuria, Other Past Patient History - Past Medical History & Family History Past Medical History?: Yes - CARDIAC Hx Cardiac Disorders: Yes Hx Hypercholesterolemia: Yes Hx Hypertension: Yes - PULMONARY Hx Asthma: Yes - NEUROLOGICAL Hx Neurological Disorder: No - HEENT Hx HEENT Problems: No - RENAL Hx Chronic Kidney Disease: No - ENDOCRINE/METABOLIC Hx Endocrine Disorders: No - HEMATOLOGICAL/ONCOLOGICAL Hx AIDS: No Hx Blood Transfusions: No Hx Human Immunodeficiency Virus (HIV): No - INTEGUMENTARY Hx Dermatological Problems: No - MUSCULOSKELETAL/RHEUMATOLOGICAL Hx Musculoskeletal Disorders: No Hx Falls: No - GASTROINTESTINAL Hx Gastrointestinal Disorders: No - GENITOURINARY/GYNECOLOGICAL Hx Genitourinary Disorders: No - PSYCHIATRIC Hx Substance Use: No - SURGICAL HISTORY Hx Surgeries: No - ANESTHESIA Hx Anesthesia: No Hx Anesthesia Reactions: No Meds Allergies/Adverse Reactions: Allergies Allergy/AdvReac Type Severity Reaction Status Date / Time No Known Allergies Allergy Verified 11/24/17 14:50 - Medications Medications: Current Medications Acetaminophen (Tylenol 325mg Tab) 650 mg PO Q4 PRN PRN Reason: Pain, Mild (1-3) Aspirin (Aspirin) 325 mg PO DAILY [facility] Last Admin: 11/29/17 09:05 Dose: 325 mg Atorvastatin Calcium (Lipitor) 20 mg PO DAILY [facility] Last Admin: 11/29/17 09:05 Dose: 20 mg Clopidogrel Bisulfate (Plavix) 75 mg PO DAILY [facility] Last Admin: 11/29/17 09:05 Dose: 75 mg Nystatin (Nystop Topical Powder) 1 applic TOP TID [facility] Last Admin: 11/29/17 16:22 Dose: 1 applic Valsartan (Diovan) 80 mg PO DAILY [facility] Last Admin: 11/25/17 08:52 Dose: 80 mg Physical Exam - ENT Exam ENT Exam: Mucous Membranes Moist, Normal Exam - Neck Exam Neck exam: Positive for: Normal Inspection - Respiratory Exam Respiratory Exam: Clear to Auscultation Bilateral, NORMAL BREATHING PATTERN - Cardiovascular Exam Cardiovascular Exam: REGULAR RHYTHM - GI/Abdominal Exam GI & Abdominal Exam: Normal Bowel Sounds, Soft. absent: Tenderness - Rectal Exam Rectal Exam: NORMAL INSPECTION - Extremities Exam Extremities exam: Positive for: normal inspection - Back Exam Back exam: NORMAL INSPECTION - Neurological Exam Neurological exam: Altered, Normal Gait Results - Vital Signs Recent Vital Signs: Last Vital Signs Temp 97.9 F 11/29/17 16:00 Pulse 68 11/29/17 16:00 Resp 18 11/29/17 16:00 BP 103/66 11/29/17 16:00 Pulse Ox 97 11/29/17 16:00 - Labs Result Diagrams: 11/26/17 05:00 11/28/17 06:31 - Impressions Impression: Imaging reviewed by me. My interpretation NCCT head reveals significant lacune-related atrophy of subcortical tissue including deep nuclear structures predominantly the basal ganglia CTA shows evidence of a mild to moderate atherosclerosis of the left ICA which is <50% on both CTA and carotid doppler Assessment & Plan - Assessment and Plan (Free Text) Assessment: Acute confusional state Moderate Left ICA origin stenosis Plan: 1. Risk factor management 2. Aspirin 3. Intensive statin therapy.
[2017-11-30 05:18] VITALS: RESP 18
--- NOTE | 2017-11-30 09:30 | CP.PCM.PN ---
Subjective - Date & Time of Evaluation Date of Evaluation: 11/30/17 Time of Evaluation: 09:29 - Subjective Subjective: NO NEW CLINICAL FINDINGS Objective - Vital Signs/Intake and Output Vital Signs (last 24 hours): Temp Pulse Resp BP Pulse Ox 97.3 F L 59 L 18 119/72 96 11/30/17 08:00 11/30/17 08:00 11/30/17 08:00 11/30/17 08:00 11/30/17 08:00 - Medications Medications: Current Medications Acetaminophen (Tylenol 325mg Tab) 650 mg PO Q4 PRN PRN Reason: Pain, Mild (1-3) Aspirin (Aspirin) 325 mg PO DAILY [facility] Last Admin: 11/30/17 09:13 Dose: 325 mg Atorvastatin Calcium (Lipitor) 20 mg PO DAILY [facility] Last Admin: 11/30/17 09:13 Dose: 20 mg Clopidogrel Bisulfate (Plavix) 75 mg PO DAILY [facility] Last Admin: 11/30/17 09:13 Dose: 75 mg Nystatin (Nystop Topical Powder) 1 applic TOP TID [facility] Last Admin: 11/30/17 09:14 Dose: 1 applic Valsartan (Diovan) 80 mg PO DAILY [facility] Last Admin: 11/25/17 08:52 Dose: 80 mg - Labs Labs: 11/26/17 05:00 11/28/17 06:31 PT 14.6 Seconds (9.8-13.1) H 11/24/17 15:42 INR 1.3 (0.9-1.2) H 11/24/17 15:42 APTT 29.7 Seconds (25.6-37.1) 11/24/17 15:42 - Constitutional Appears: No Acute Distress - Head Exam Head Exam: ATRAUMATIC, NORMAL INSPECTION, NORMOCEPHALIC - Eye Exam Eye Exam: EOMI, Normal appearance, PERRL Pupil Exam: NORMAL ACCOMODATION, PERRL - ENT Exam ENT Exam: Mucous Membranes Moist, Normal Exam - Neck Exam Neck Exam: Full ROM, Normal Inspection. absent: Lymphadenopathy - Respiratory Exam Respiratory Exam: Clear to Ausculation Bilateral, NORMAL BREATHING PATTERN - Cardiovascular Exam Cardiovascular Exam: REGULAR RHYTHM, +S1, +S2. absent: Murmur - GI/Abdominal Exam GI & Abdominal Exam: Soft, Normal Bowel Sounds. absent: Tenderness - Rectal Exam Rectal Exam: NORMAL INSPECTION - Extremities Exam Extremities Exam: Full ROM, Normal Capillary Refill, Normal Inspection. absent : Joint Swelling, Pedal Edema - Back Exam Back Exam: NORMAL INSPECTION - Neurological Exam Neurological Exam: Alert, Awake, CN II-XII Intact, Normal Gait, Oriented x3 - Psychiatric Exam Psychiatric exam: Normal Affect, Normal Mood - Skin Skin Exam: Dry, Intact, Normal Color, Warm Assessment and Plan - Assessment and Plan (Free Text) Assessment: SYNCOPE Plan: AWAITING PLACEMENT
[2017-11-30 17:31] VITALS: BMI 22.9
--- NOTE | 2017-12-01 11:33 | CP.PCM.DIS ---
Provider - Provider Date of Admission: 11/24/17 17:19 Attending physician: Americo Noble MD Time Spent in preparation of Discharge (in minutes): 30 Diagnosis - Discharge Diagnosis (1) Syncope Status: Acute (2) Carotid artery disease Status: Acute (3) Change in mental status Status: Acute (4) Confusion and disorientation Status: Acute (5) Hypertension Status: Acute Hospital Course - Lab Results Lab Results: Micro Results 11/25/17 12:15 Blood-Venous Blood Culture - Final NO GROWTH AFTER 5 DAYS 11/25/17 12:15 Blood-Venous Gram Stain - Final TEST NOT PERFORMED 11/25/17 17:00 Urine,Clean Catch Urine Culture - Final 10-50,000 CFU/ML. MULTIPLE SPECIES. PROBABLE CONTAMINATION. Most Recent Lab Values WBC 11.9 K/uL (4.8-10.8) H 11/26/17 05:00 RBC 4.32 Mil/uL (4.40-5.90) L 11/26/17 05:00 Hgb 12.4 g/dL (12.0-18.0) 11/26/17 05:00 Hct 37.5 % (35.0-51.0) 11/26/17 05:00 MCV 86.8 fl (80.0-94.0) D 11/26/17 05:00 MCH 28.6 pg (27.0-31.0) 11/26/17 05:00 MCHC 33.0 g/dL (33.0-37.0) 11/26/17 05:00 RDW 15.2 % (11.5-14.5) H 11/26/17 05:00 Plt Count 264 K/uL (130-400) 11/26/17 05:00 MPV 7.9 fl (7.2-11.7) 11/24/17 16:55 Neut % (Auto) 72.9 % (50.0-75.0) 11/24/17 16:55 Lymph % (Auto) 21.5 % (20.0-40.0) 11/24/17 16:55 [place] % (Auto) 5.2 % (0.0-10.0) 11/24/17 16:55 Eos % (Auto) 0.2 % (0.0-4.0) 03/14/18 16:55 Baso % (Auto) 0.2 % (0.0-2.0) 11/24/17 16:55 Neut # (Auto) 12.2 K/uL (1.8-7.0) H 11/24/17 16:55 Lymph # (Auto) 3.6 K/uL (1.0-4.3) 11/24/17 16:55 [place] # (Auto) 0.9 K/uL (0.0-0.8) H 11/24/17 16:55 Eos # (Auto) 0.0 K/uL (0.0-0.7) 11/24/17 16:55 Baso # (Auto) 0.0 K/uL (0.0-0.2) 11/24/17 16:55 PT 14.6 Seconds (9.8-13.1) H 11/24/17 15:42 INR 1.3 (0.9-1.2) H 11/24/17 15:42 APTT 29.7 Seconds (25.6-37.1) 11/24/17 15:42 Sodium 140 mmol/l (132-148) 11/28/17 06:31 Potassium 3.6 MMOL/L (3.6-5.0) 11/28/17 06:31 Chloride 103 mmol/L (98-107) 11/28/17 06:31 Carbon Dioxide 24 mmol/L (22-30) 11/28/17 06:31 Anion Gap 17 (10-20) 11/28/17 06:31 BUN 12 mg/dl (9-20) 11/28/17 06:31 Creatinine 1.2 mg/dl (0.8-1.5) 11/28/17 06:31 Est GFR ( Amer) > 60 11/28/17 06:31 Est GFR (Non-Af Amer) 58 11/28/17 06:31 Random Glucose 82 mg/dL (75-110) 11/28/17 06:31 Hemoglobin A1c 5.7 % (4.2-6.5) 11/24/17 15:42 Calcium 8.8 mg/dL (8.4-10.2) 11/28/17 06:31 Phosphorus 6.3 mg/dl (2.5-4.5) H 11/24/17 15:42 Magnesium 2.0 MG/DL (1.6-2.3) 11/24/17 15:42 Total Bilirubin 0.8 mg/dl (0.2-1.3) 11/24/17 15:42 AST 30 U/L (17-59) 11/24/17 15:42 ALT 18 U/L (21-72) L 11/24/17 15:42 Alkaline Phosphatase 102 U/L (38-126) 11/24/17 15:42 Ammonia 21 umo/L (16-60) 11/24/17 15:40 Total Creatine Kinase 44 U/L (55-170) L 11/24/17 15:42 Troponin I 0.0280 ng/mL (0.00-0.120) 11/24/17 15:42 NT-Pro-B Natriuret Pep 164 pg/ml (0-900) 11/24/17 15:42 Total Protein 6.7 G/DL (6.3-8.2) 11/24/17 15:42 Albumin 3.4 g/dL (3.5-5.0) L 11/24/17 15:42 Globulin 3.3 gm/dL (2.2-3.9) 11/24/17 15:42 Albumin/Globulin Ratio 1.0 (1.0-2.1) 11/24/17 15:42 Triglycerides 175 mg/DL (0-149) H 11/24/17 15:42 Cholesterol 217 mg/dL (0-199) H 11/24/17 15:42 LDL Cholesterol Direct 176 mg/dL (0-129) H 11/24/17 15:42 HDL Cholesterol 21 MG/DL (30-70) L 11/24/17 15:42 Urine Color Yellow (YELLOW) 11/25/17 17:00 Urine Clarity Cloudy (Clear) 11/25/17 17:00 Urine pH 5.0 (5.0-8.0) 11/25/17 17:00 Ur Specific [place] 1.030 (1.003-1.030) 11/25/17 17:00 Urine Protein 30 mg/dL (NEGATIVE) 11/25/17 17:00 Urine Glucose (UA) Neg mg/dL (Normal) 11/25/17 17:00 Urine Ketones Negative mg/dL (NEGATIVE) 11/25/17 17:00 Urine Blood Large (NEGATIVE) 11/25/17 17:00 Urine Nitrate Negative (NEGATIVE) 11/25/17 17:00 Urine Bilirubin Negative (NEGATIVE) 11/25/17 17:00 Urine Urobilinogen 0.2-1.0 mg/dL (0.2-1.0) 11/25/17 17:00 Ur Leukocyte Esterase Trace [place]/uL (Negative) 11/25/17 17:00 Urine RBC (Auto) 1462 /hpf (0-3) H 11/25/17 17:00 Urine Microscopic WBC 12 /hpf (0-5) H 11/25/17 17:00 Ur Squamous Epith Cells 1 /hpf (0-5) 11/25/17 17:00 Urine Opiates Screen Negative (NEGATIVE) 11/24/17 18:19 Urine Methadone Screen Negative (NEGATIVE) 11/24/17 18:19 Ur Barbiturates Screen Negative (NEGATIVE) 11/24/17 18:19 Ur Phencyclidine Scrn Negative (NEGATIVE) 11/24/17 18:19 Ur Amphetamines Screen Negative (NEGATIVE) 11/24/17 18:19 U Benzodiazepines Scrn Negative (NEGATIVE) 11/24/17 18:19 U Oth Cocaine Metabols Negative (NEGATIVE) 11/24/17 18:19 U Cannabinoids Screen Negative (NEGATIVE) 11/24/17 18:19 Alcohol, Quantitative < 10 mg/dl (0-10) 11/24/17 15:42 Influenza Typ A,B (EIA) Negative for flu a/b (NEGATIVE) 11/24/17 15:40 Blood Type O POSITIVE 11/24/17 15:42 Antibody Screen Negative 11/24/17 15:42 BBK History Checked No verified bt 11/24/17 15:42 - Hospital Course Hospital Course: no recurrence of syncope gait improved Discharge Exam - Head Exam Head Exam: ATRAUMATIC, NORMAL INSPECTION, NORMOCEPHALIC - Eye Exam Eye Exam: EOMI, Normal appearance, PERRL Pupil Exam: NORMAL ACCOMODATION, PERRL - GI/Abdominal Exam GI & Abdominal Exam: Normal Bowel Sounds - Rectal Exam Rectal Exam: NORMAL INSPECTION - Neurological Exam Neurological exam: Alert, CN II-XII Intact, Normal Gait, Oriented x3, Reflexes Normal - Psychiatric Exam Psychiatric exam: Normal Affect, Normal Mood - Skin Skin Exam: Dry, Intact, Normal Color, Warm Discharge Plan - Follow Up Plan Condition: GOOD Disposition: HOME/ ROUTINE Patient education suggested?: Yes Instructions: Coronary Heart Disease (DC), Dementia (DC) Additional Instructions: transfer to [facility] [place], [place]--maintain on current meds
[2017-12-01 12:36] VITALS: BP 103/69; PULSE 66; TEMP 98.2; O2SAT 95
--- NOTE | 2017-12-02 10:19 | PQF GENQUE ---
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 After study if known what is the cause or source? This form is a permanent part of the medical record Clarification of your documentation is requested to better reflect the severity of illness and intensity of treatment of your patient. Indicators present [] Specify: [] [] Specify: [] [] Specify: [] [] Specify: [] Location in the medical record that reflects the above clinical findings: [] Treatment Provided: [] PHYSICIAN'S RESPONSE Based on your medical judgment of the clinical indicators outlined above please clarify the following: [x] Practitioner response syncope and altered mental status due to carotid atherosclerosis [] If unable to determine, please check the box, sign and date. Present On Admission (POA) Indicator: [] Present at the time of admission [] Not present at the time of admission [] Clinically Undetermined In responding to this query, please exercise your independent professional judgment. The fact that a question is asked does not imply that any particular answer is desired or expected. Thank you for your clarification on this documentation. If you have any questions please call:[ ] * Thank you, [ ]Tamie Lewis line and frame poler TIAN
== END 2017-12-01 13:07 | DRG 68 ==
LOC: H.ER 14:45 → H.ERHOLD 17:19 → H.TEL 21:17
PROVIDERS: ADMIT Internal Medicine Pulmonary Disease; ATTEND Internal Medicine Pulmonary Disease
DX: I65.22 Occlusion and stenosis of left carotid artery (principal); E86.0 Dehydration; F03.90 Unspecified dementia, unspecified severity, without behavioral disturbance, psychotic disturbance, mood disturbance, and anxiety; R55 Syncope and collapse; I10 Essential (primary) hypertension; I45.10 Unspecified right bundle-branch block; I67.2 Cerebral atherosclerosis; E87.6 Hypokalemia; Z59.0 Homelessness; Z91.83 Wandering in diseases classified elsewhere; E78.00 Pure hypercholesterolemia, unspecified; N28.9 Disorder of kidney and ureter, unspecified; M47.812 Spondylosis without myelopathy or radiculopathy, cervical region; Z91.14 Patient's other noncompliance with medication regimen; J45.909 Unspecified asthma, uncomplicated